=== PATIENT | male | born 1970 | race Caucasian/White ===

== ENCOUNTER 2017-04-06 00:41 | Emergency (ER) | payer OTHER ==
[~2017-04-06] VITALS: Ht 180.3 cm; Wt 113.6 kg
[~2017-04-06 00:41] MED LIST: ADVIL200 MG PO; ASPIR-LOW81 MG PO; ATORVASTATIN CA80 MG PO; BENADRYL25 MG PO; HYDROCHLOROTHIA25 MG PO; LISINOPRIL20 MG PO; NOHOMEMEDS; PROPRANOLOL HCL60 MG PO; ROXICET 5-3251 EACH PO; ZESTORETIC 20-1 EAC1 NG
[2017-04-06 01:12] LABS: APPEARANCE CLEAR ((CLEAR)); BILIRUBIN NEGATIVE; BLOOD NEGATIVE; COLOR YELLOW ((YELLOW)); GLUCOSE (STRIP) NEGATIVE; KETONES NEGATIVE; LEUKOCYTES NEGATIVE; NITRITE NEGATIVE; PROTEIN (STRIP) NEGATIVE; SPECIFIC GRAVITY 1.027 (1.000-1.030); UCUL ADDED? NO
[2017-04-06 01:22] LABS: ALBUMIN 4.6 g/dL (3.2-4.8); HEMATOCRIT 51.7 % (38.0-50.0); HEMOGLOBIN 17.8 G/DL (12.5-16.6); MCH 32.4 PG (29.0-34.0); MCHC 34.4 G/DL (30.0-36.0); PLATELET COUNT 304 K/uL (156-360); RBC DIS.WIDTH-CV 11.8 % (11.8-14.6); RBC DIS.WIDTH-SD 41.3 % (39-53); WHITE BLOOD COUNT 14.9 K/uL (4.1-10.2)
[2017-04-06 01:23] LABS: CHLORIDE 98 mEq/L (99-109); POTASSIUM 4.6 mEq/L (3.7-5.4); SODIUM 139 mEq/L (136-147)
[2017-04-06 01:25] LABS: GLUCOSE 103 mg/dL (70-99); TOTAL PROTEIN 7.8 g/dL (6.4-8.3)
[2017-04-06 01:27] LABS: TOTAL BILIRUBIN 0.4 mg/dL (0.0-1.0)
[2017-04-06 01:28] LABS: ALKALINE PHOSPHATASE 77 IU/L (3-129)
[2017-04-06 01:29] LABS: CREATININE 1.1 mg/dL (0.6-1.3); GFR ESTIMATE (CALCULATED) > 59 mL/min/ (58.99-99999)
[2017-04-06 01:30] LABS: AST (GOT) 17 IU/L (2-34); UREA NITROGEN (BUN) 26 mg/dL (9-23)
[2017-04-06 01:32] LABS: ALT (GPT) 20 IU/L (3-49)
[2017-04-06 02:11] LABS: LIPASE 20 U/L (1.0-51.0)
[2017-04-06 02:15] LABS: TROP-I INTERPRETATION NEGATIVE; TROPONIN-I < 0.01 ng/mL (0.0-0.30)
[2017-04-06] MEDS ORDERED: BENTYL20 MG PO (03:30)
[2017-04-06] MEDS ORDERED: ZOFRAN4 MG PO (03:30)
[2017-04-06 04:02] VITALS: BP 127/63
== END 2017-04-06 04:04 | disposition home or self-care (01) ==
LOC: EME 00:41
DX: K52.9 Noninfective gastroenteritis and colitis, unspecified (principal); Z87.442 Personal history of urinary calculi; I10 Essential (primary) hypertension; F17.200 Nicotine dependence, unspecified, uncomplicated; K21.9 Gastro-esophageal reflux disease without esophagitis; Z88.8 Allergy status to other drugs, medicaments and biological substances
CPT/HCPCS: 71046; 74174; 76705; 80053; 81003; 83690; 84484; 85027; 93005; 99281; 99284; J2405; J3010; J7030